=== PATIENT | male | born 1945 | race Caucasian/White ===

== ENCOUNTER 2017-05-29 09:40 | Emergency (ER) | payer MEDICARE, OTHER ==
[~2017-05-29 09:40] MED LIST: AMIO200T PO; AMIO200T42 PO; ASPI-496 PO; ATOR10TA PO; DABI150C PO; ENAL5TAB PO; FLUT16SP2 NAS; FLUT16SP2 NS; HYDR-3237 PO; LOSA50TA6 PO; METF850T2 PO; METO50TA6 PO; METO50TA82 PO; MULT-658 PO; OLME1TAB25 PO; OMEP20CA9 PO; SOTA80TA18 PO
[2017-05-29] MEDS ORDERED: TAMSULOSIN 0.4 MG CAP.ER.24H PO ONE (11:00)
[2017-05-29] MEDS ORDERED: PLEASE ENTER WEIGHT MC SCH (11:01)
[2017-05-29] MEDS ORDERED: TAMSULOSIN 0.4 MG CAP.ER.24H ONE (11:12)
[2017-05-29 11:28] LABS: BASOPHILS # (AUTO) 0.04 x10^3/uL (0-0.1); BASOPHILS % (AUTO) 1 % (0-1); EOSINOPHILS # (AUTO) 0.15 x10^3/uL (0-0.4); EOSINOPHILS % (AUTO) 2 % (1-7); LYMPHOCYTES # (AUTO) 1.58 x10^3/uL (1-3.4); LYMPHOCYTES % (AUTO) 22 % (22-44); MD NO; MEAN CORPUSCULAR HEMOGLOBIN 28.9 pg (27.5-34.5); MEAN CORPUSCULAR HGB CONC 33.4 g/dL (33.2-36.2); MEAN CORPUSCULAR VOLUME 86.7 fL (81-97); MEAN PLATELET VOLUME 8.7 fL (7.4-10.4); MONOCYTES # (AUTO) 0.83 x10^3/uL (0.2-0.8); MONOCYTES % (AUTO) 12 % (2-9); NEUTROPHILS # (AUTO) 4.58 x10^3/uL (1.8-6.8); NEUTROPHILS % (AUTO) 64 % (42-75); PLATELET COUNT 175 x10^3/uL (130-400); RED BLOOD COUNT 5.62 x10^6/uL (4.38-5.82); RED CELL DISTRIBUTION WIDTH 14.7 % (9.4-14.8)
[2017-05-29 11:44] LABS: ALANINE AMINOTRANSFERASE 27 U/L (12-78); ALBUMIN 3.6 g/dL (3.4-5.0); ANION GAP 5 mmol/L (5-15); CALCIUM 9.1 mg/dL (8.5-10.1); CHLORIDE 106 mmol/L (98-107); CREATININE 1.41 mg/dL (0.7-1.3)
[2017-05-29 11:46] LABS: ALKALINE PHOSPHATASE 164 U/L (45-117); BILIRUBIN,TOTAL 0.3 mg/dL (0.2-1.0); TOTAL PROTEIN 7.6 g/dL (6.4-8.2)
[2017-05-29 14:07] LABS: MICROSCOPIC AUTO
[2017-05-29 14:20] LABS: CULTURE INDICATED? YES
[2017-05-29 15:21] VITALS: BP 132/84
== END 2017-05-29 15:23 | disposition home or self-care (01) ==
LOC: ED 11:42
DX: N39.0 Urinary tract infection, site not specified (principal); E11.9 Type 2 diabetes mellitus without complications; I10 Essential (primary) hypertension; Z87.891 Personal history of nicotine dependence
CPT/HCPCS: 36415; 74021; 80053; 81001; 85025; 87086; 99285

== ENCOUNTER → 2017-07-10 | Outpatient (CLI) | payer MEDICARE, OTHER | LOC: CFH 12:22 | PROVIDERS: ATTEND Nurse Practitioner Primary Care | DX: M75.51 Bursitis of right shoulder (principal); M19.011 Primary osteoarthritis, right shoulder; I65.23 Occlusion and stenosis of bilateral carotid arteries; E78.2 Mixed hyperlipidemia | CPT/HCPCS: 93880 ==

== ENCOUNTER → 2017-07-16 | Outpatient (CLI) | payer MEDICARE, OTHER | END | disposition home or self-care (01) | LOC: CFH 12:21 | PROVIDERS: ATTEND Nurse Practitioner Primary Care | DX: M19.011 Primary osteoarthritis, right shoulder (principal); M43.12 Spondylolisthesis, cervical region; M50.30 Other cervical disc degeneration, unspecified cervical region; G89.29 Other chronic pain | CPT/HCPCS: 72050 ==

== ENCOUNTER → 2017-07-17 | Outpatient (CLI) | payer MEDICARE, OTHER ==
[~2017-07-17] MED LIST changes: +REGADENOSON 0.4 MG/5 ML SYRINGE ONE
== END ==
LOC: CFH 07-13 12:23
PROVIDERS: ATTEND Internal Medicine Cardiovascular Disease
DX: I25.10 Atherosclerotic heart disease of native coronary artery without angina pectoris (principal); I70.0 Atherosclerosis of aorta
CPT/HCPCS: 78452; 93017; A9502; J2785

== ENCOUNTER → 2017-08-23 | Outpatient (CLI) | payer MEDICARE, OTHER ==
[~2017-08-23] MED LIST changes: +APIX5TAB PO; +AZIT500T5 PO; +LOSA100T6 PO; -REGADENOSON 0.4 MG/5 ML SYRINGE ONE; +TAMS-11 PO
== END | disposition home or self-care (01) ==
LOC: CACL 09:52 → EDSTATUS 12:00
PROVIDERS: ATTEND Internal Medicine Cardiovascular Disease
DX: I48.91 Unspecified atrial fibrillation (principal)
CPT/HCPCS: 93005

== ENCOUNTER 2019-12-10 12:25 | Outpatient (CLI) | payer MEDICARE, OTHER ==
[~2019-12-10 12:25] MED LIST changes: +AZIT500T10 PO; -AZIT500T5 PO; -ENAL5TAB PO; +ENAL5TAB10 PO; +LOSA100T14 PO; -LOSA100T6 PO; +LOSA50TA14 PO; -LOSA50TA6 PO; +METF850T10 PO; -METF850T2 PO
== END 2019-12-10 23:59 | disposition home or self-care (01) ==
LOC: CVU 12:25
PROVIDERS: ATTEND Internal Medicine Cardiovascular Disease
DX: I08.0 Rheumatic disorders of both mitral and aortic valves (principal); I42.9 Cardiomyopathy, unspecified; E11.21 Type 2 diabetes mellitus with diabetic nephropathy
CPT/HCPCS: 93306; 93922

== ENCOUNTER 2020-01-20 11:17 | Emergency (ER) | payer MEDICARE, OTHER ==
[~2020-01-20] VITALS: Ht 177.8 cm; Wt 96.1 kg
[~2020-01-20 11:17] MED LIST changes: +ENAL5TAB PO; -ENAL5TAB10 PO
--- NOTE | 2020-01-20 12:07 | NUR ---
pt back from x ray. pt in [facility]. awaiting results of imaging. call light in reach. nibp and o2 monitoring in place.
[2020-01-20 12:10] VITALS: BP 105/66
== END 2020-01-20 13:25 | disposition home or self-care (01) ==
LOC: ED 12:16
DX: K59.00 Constipation, unspecified (principal); R10.84 Generalized abdominal pain; I10 Essential (primary) hypertension; E11.9 Type 2 diabetes mellitus without complications; I48.91 Unspecified atrial fibrillation
CPT/HCPCS: 74021; 99283

== ENCOUNTER 2020-01-30 09:47 | Emergency (ER) | payer MEDICARE, OTHER ==
[~2020-01-30] VITALS: Ht 177.8 cm; Wt 94.9 kg
[~2020-01-30 09:47] MED LIST changes: -ENAL5TAB PO; +ENAL5TAB10 PO
[2020-01-30] MEDS ORDERED: SODIUM CHLORIDE FLUSH 10ML SYR IVF ONE (10:30)
[2020-01-30 10:47] LABS: BASOPHILS # (AUTO) 0.05 x10^3/uL (0-0.1); BASOPHILS % (AUTO) 1 % (0-1); EOSINOPHILS # (AUTO) 0.21 x10^3/uL (0-0.4); EOSINOPHILS % (AUTO) 3 % (1-7); LYMPHOCYTES % (AUTO) 25 % (22-44); MD NO; MEAN CORPUSCULAR HEMOGLOBIN 27.8 pg (27.5-34.5); MEAN CORPUSCULAR HGB CONC 32.5 g/dL (33.2-36.2); MEAN CORPUSCULAR VOLUME 85.6 fL (81-97); MEAN PLATELET VOLUME 8.5 fL (7.4-10.4); MONOCYTES # (AUTO) 0.78 x10^3/uL (0.2-0.8); MONOCYTES % (AUTO) 12 % (2-9); NEUTROPHILS # (AUTO) 4.04 x10^3/uL (1.8-6.8); NEUTROPHILS % (AUTO) 60 % (42-75); PLATELET COUNT 243 x10^3/uL (130-400); RED BLOOD COUNT 5.28 x10^6/uL (4.38-5.82); RED CELL DISTRIBUTION WIDTH 15.1 % (9.4-14.8)
[2020-01-30 10:55] LABS: ALBUMIN 3.2 g/dL (3.4-5.0); ANION GAP 5 mmol/L (5-15); CHLORIDE 106 mmol/L (98-107)
[2020-01-30 10:59] LABS: ALANINE AMINOTRANSFERASE 41 U/L (12-78); ALKALINE PHOSPHATASE 132 U/L (45-117); BILIRUBIN,TOTAL 0.6 mg/dL (0.2-1.0); CREATININE 1.29 mg/dL (0.7-1.3); TOTAL PROTEIN 7.3 g/dL (6.4-8.2)
--- NOTE | 2020-01-30 11:25 | NUR ---
PT TO CT
[2020-01-30] MEDS ORDERED: OMNIPAQUE 350 MG/ML, 100ML BOTTLE ONE (11:39)
[2020-01-30 12:23] VITALS: BP 112/77
--- NOTE | 2020-01-30 12:24 | NUR ---
Patient given discharge instructions and they have confirmed that they understand the instructions. Patient ambulatory with steady gait.
== END 2020-01-30 12:28 | disposition home or self-care (01) ==
LOC: ED 10:06
DX: G89.29 Other chronic pain (principal); R10.9 Unspecified abdominal pain; R10.84 Generalized abdominal pain; K59.00 Constipation, unspecified; I10 Essential (primary) hypertension; E11.9 Type 2 diabetes mellitus without complications; I48.91 Unspecified atrial fibrillation; R63.0 Anorexia
CPT/HCPCS: 36415; 74177; 80053; 85025; 99285; Q9967

== ENCOUNTER 2020-03-10 09:47 | Emergency (ER) | payer MEDICARE, OTHER ==
[~2020-03-10] VITALS: Ht 179.1 cm; Wt 100.9 kg
[2020-03-10 10:05] VITALS: BP 122/83
--- NOTE | 2020-03-10 10:05 | NUR ---
ASSUMED CARE OF PT AT THIS TIME FROM TRIAGE, ASSISTED PT TO AMBULATE IN ROOM WITH OWN CANE TO TRANSFER FROM WHEELCHAIR TO [facility]. DR. DOBSON AT BEDSIDE FOR EVALUATION. 75 Y/O M PRESENTS STATING "RIGHT KNEE PAIN IN THE BACK PART OF KNEE, WAS IN THE SHOWER HEARD AND FELT A POP, DIDN'T FALL, DIDN'T SLIP OR TWIST, SO ODD, NOW JUST CONSTANT PAIN, HURTS TO WALK NOW." +ROM, NO SWELLING, ERYTHEMA, WARMTH. TENDER TO PALPATION. RATES PAIN 10/10 IN RIGHT KNEE. CONT PULSE OX, BP MONITORS APPLIED. VSS. CALL LIGHT IN REACH. FALL PRECAUTIONS IN PLACE. SIDE RAILS UPX2. A&OX4.
--- NOTE | 2020-03-10 10:10 | NUR ---
RECEIVED REPORT FROM LIZZETH NGUYEN. PT RESTING ON WM.
--- NOTE | 2020-03-10 10:12 | NUR ---
BEDSIDE REPORT AND CARE TO MARGOT MOREAU AT THIS TIME
--- NOTE | 2020-03-10 11:05 | NUR ---
PT CHART REVIEWED AND PLACED FOR RECHECK.
== END 2020-03-10 11:40 | disposition home or self-care (01) ==
LOC: ED 10:11
DX: S86.911A Strain of unspecified muscle(s) and tendon(s) at lower leg level, right leg, initial encounter (principal); X58.XXXA Exposure to other specified factors, initial encounter; Y93.89 Activity, other specified; Y92.89 Other specified places as the place of occurrence of the external cause; Y99.8 Other external cause status
CPT/HCPCS: 99284

== ENCOUNTER 2020-04-21 10:34 | Day surgery (SDC) | payer MEDICARE, OTHER ==
[~2020-04-21] VITALS: Ht 179.1 cm; Wt 99.1 kg
[2020-04-21 11:18] VITALS: BP 135/100
[2020-04-21] MEDS ORDERED: VIT1CAPS11 PO (11:24)
[2020-04-21] MEDS ORDERED: METO50TA82 PO (11:24)
[2020-04-21] MEDS ORDERED: PRED5TAB PO (11:25)
[2020-04-21 11:58] LABS: ANION GAP 10 mmol/L (5-15); CALCIUM 9.3 mg/dL (8.5-10.1); CHLORIDE 110 mmol/L (98-107); CREATININE 1.02 mg/dL (0.7-1.3)
[2020-04-21] MEDS ORDERED: PROPOFOL 10 MG/ML, 20ML ONE (12:07)
== END 2020-04-21 13:22 | disposition home or self-care (01) ==
LOC: CACL 10:34
PROVIDERS: ATTEND Internal Medicine Cardiovascular Disease
DX: I48.91 Unspecified atrial fibrillation (principal); I10 Essential (primary) hypertension; I42.9 Cardiomyopathy, unspecified; E78.5 Hyperlipidemia, unspecified; E11.21 Type 2 diabetes mellitus with diabetic nephropathy; N28.9 Disorder of kidney and ureter, unspecified; N40.0 Benign prostatic hyperplasia without lower urinary tract symptoms; G47.30 Sleep apnea, unspecified; F10.10 Alcohol abuse, uncomplicated; Z79.01 Long term (current) use of anticoagulants; Z79.82 Long term (current) use of aspirin; Z79.899 Other long term (current) drug therapy; Z98.890 Other specified postprocedural states
CPT/HCPCS: 36415; 80048; 92960; 93005; J2704

== ENCOUNTER 2020-07-27 09:42 | Day surgery (SDC) | payer MEDICARE, OTHER ==
[~2020-07-27] VITALS: Ht 177.8 cm; Wt 100.0 kg
[~2020-07-27 09:42] MED LIST changes: +PRED5TAB PO; +VIT1CAPS11 PO
[2020-07-27] MEDS ORDERED: SOTA80TA PO (10:13)
[2020-07-27] MEDS ORDERED: ASPI81TA45 PO (10:13)
[2020-07-27] MEDS ORDERED: SENN1TAB67 PO (10:16)
[2020-07-27] MEDS ORDERED: OMEP-110 PO (10:16)
[2020-07-27 10:24] VITALS: BP 140/102
[2020-07-27 10:37] LABS: ANION GAP 6 mmol/L (5-15); CALCIUM 9.2 mg/dL (8.5-10.1); CHLORIDE 110 mmol/L (98-107)
[2020-07-27] MEDS ORDERED: PROPOFOL 10 MG/ML, 20ML ONE (11:18)
== END 2020-07-27 12:59 | disposition home or self-care (01) ==
LOC: CACL 09:42
PROVIDERS: ATTEND Internal Medicine Cardiovascular Disease
DX: I48.20 Chronic atrial fibrillation, unspecified (principal); I10 Essential (primary) hypertension; E78.5 Hyperlipidemia, unspecified; E11.9 Type 2 diabetes mellitus without complications; N40.0 Benign prostatic hyperplasia without lower urinary tract symptoms; Z79.01 Long term (current) use of anticoagulants; Z79.899 Other long term (current) drug therapy
CPT/HCPCS: 36415; 80048; 92960; J2704